=== PATIENT | female | born 1960 | race Caucasian/White ===

== ENCOUNTER 2023-12-25 05:06 | Emergency (ER) | payer BC, MEDICAID ==
[~2023-12-25] VITALS: Ht 170.2 cm; Wt 61.2 kg
[2023-12-25 05:17] VITALS: BP 187/103; PULSE 92; RESP 16; TEMP 97; O2SAT 98
[2023-12-25] MEDS ORDERED: methylPREDNISolone SS 125 MG/2 ML VIAL ONE (06:23)
[2023-12-25] MEDS ORDERED: WATER STERILE 10 ML MC ONE (06:23)
[2023-12-25] MEDS: methylPREDNISolone SS 125 MG in WATER STERILE 2 ML IM ONE (06:30)
[2023-12-25] MEDS: FAMOTIDINE 20 MG TAB PO ONE (06:31)
[2023-12-25] MEDS ORDERED: FAMO-90 PO (07:27)
[2023-12-25] MEDS ORDERED: CETI-24 PO (07:27)
[2023-12-25] MEDS ORDERED: PRED20TA5 PO (07:27)
[2023-12-25 07:50] VITALS: BP 161/86; PULSE 86; RESP 21; TEMP 97.7; O2SAT 98
== END 2023-12-25 07:51 | disposition home or self-care (01) ==
LOC: MED 05:06
DX: H10.13 Acute atopic conjunctivitis, bilateral (principal); Z79.899 Other long term (current) drug therapy
CPT/HCPCS: 96372; 99283; J2919; Q0163